=== PATIENT | male | born 1970 | race Two or more races ===

== ENCOUNTER → 2016-11-30 | Outpatient (CLI) | payer MEDICARE, OTHER ==
[~2016-11-30] MED LIST: AMOXICILLIN875 MG PO; ATARAX PO; AUGMENTIN875 MG PO; BACITRACIN15 GM OINT EXT; BACTRIM DS TABL1 TA1 PO; CIPRO PO; DELTASONE20 MG PO; DERMACORT1 GM EXT; DOXYCYCLINE PO; HYDROCODON-ACE1 EAC5 PO; HYDROCODONE-APA1 T30 PO; HYDROCODONE-APA1 T44; HYDROCORTISONE28 GM TOP; HYDROCORTISONE30 G2 EXT; HYDROCORTISONE30 G2 TOP; IBUPROFEN PO; IBUPROFEN800 MG PO; INHALER; MOTRIN600 M1 PO; NO MEDICATIONS; OMEPRAZOLE20 M2 PO; OXYCODON-ACETA1 EAC1 PO; PERCOCET 10/31 UDTA1; PREDNISONE PO; PYRIDIUM PO; SERTRALINE HCL100 M1 PO; TYLENOL #3 PO; ULTRAM PO; VISTARIL PO; ZYRTEC-D TABLE1 EACH PO; [UNRECOGNIZED DRUG - REMARK]
--- NOTE | ~2016-11-30 | CR63 ---
[facility] A Service of [facility] RADIOLOGY TEXT RESULTS PATIENT: ADIA CARDENAS LOCATION: [facility] : 74 UNIT #: [id number] AGE: [address]: JOSEPH MACEDO SEX: M ORDER DR: [id number] [facility] [address] [facility] [place], [place] [address] [id number] O MR#: [id number] Acc #: [id number] NAME: ADIA CARDENAS : 1970 SEX: M STUDY DATE/TIME: 11/30/2016 21:29 UNIT: [facility] ROOM: STUDY DESCRIPTION: CR Chest 2 View Attending Physician: Joseph Macedo Aprn Referring Physician: Joseph Macedo Aprn Ordering Physician: Joseph Macedo Aprn [facility] REPORT This report is preliminary unless electronic signature is present EXAM Two-view chest INDICATION Cough for 2 weeks. Increasing in severity. Fever. FINDINGS PA and lateral view of the chest is compared to 12/02/2015. Heart and mediastinal contours normal. Lungs are clear. No pleural effusion. IMPRESSION Negative chest radiograph. Dictated by... Carlos Gil M.D. THIS IS AN ELECTRONICALLY VERIFIED REPORT Carlos Gil M.D. at 12/02/2016 10:21 AM Uriel TD: 12/01/2016 16:45 JOB #: [id number] MEDICAL IMAGING REPORT Page 1 of 1 COPY
== END | disposition home or self-care (01) ==
LOC: CRAD 21:18
DX: J06.9 Acute upper respiratory infection, unspecified (principal); R50.9 Fever, unspecified
CPT/HCPCS: 71020

== ENCOUNTER 2016-12-18 19:26 | Emergency (ER) | payer MEDICARE, OTHER ==
--- NOTE | ~2016-12-18 | CT2 ---
[facility] A Service of [facility] RADIOLOGY TEXT RESULTS PATIENT: ADIA CARDENAS LOCATION: [facility] : 74 UNIT #: [id number] AGE: [address]: Terrell Cardenas MD SEX: M ORDER DR: [id number] [place] [address] [id number] E MR#: [id number] Acc #: [id number] NAME: ADIA CARDENAS : 1970 SEX: M STUDY DATE/TIME: 12/18/2016 21:41 UNIT: [facility] ROOM: STUDY DESCRIPTION: CT Abd and Pelv W Cont Attending Physician: Terrell Cardenas M.D. Ordering Physician: Terrell Cardenas M.D. Primary Care Physician: Tim Macedo Aprn MEDICAL IMAGING REPORT This report is preliminary unless electronic signature is present. EXAM CT abdomen and pelvis with contrast. INDICATION 46-year-old male with elevated liver enzymes today. TECHNIQUE CT of the abdomen and pelvis was performed following the administration of oral and IV contrast. Coronal and sagittal reformatted images were obtained. No comparisons. This CT exam was performed with one or more of the following radiation dose reduction techniques: automatic exposure control, adjustment of mA and/or kV according to patient size, and iterative reconstruction. FINDINGS Lung bases are clear. The liver is unremarkable. The gallbladder is contracted. The spleen is unremarkable. The kidneys are unremarkable. The adrenal glands are unremarkable. Pancreas unremarkable. There are some nonspecific prominent periportal and peripancreatic lymph nodes. PELVIS: Colon is unremarkable. Normal appendix. No free fluid in the pelvis. The colon is unremarkable. The appendix is normal. The bone windows are unremarkable. IMPRESSION No acute intraabdominal or pelvic abnormality. Dictated by... [facility] A Service [facility] RADIOLOGY TEXT RESULTS PATIENT: ADIA CARDENAS LOCATION: [facility] : 74 UNIT #: [id number] AGE: [address]: Terrell Cardenas MD SEX: M ORDER DR: Riky Burrell M.D. THIS IS AN ELECTRONICALLY VERIFIED REPORT Riky Burrell M.D. at 12/19/2016 10:06 AM LAUREEN/vasiliy TD: 12/19/2016 00:57 JOB #: [id number] MEDICAL IMAGING REPORT Page 1 of 1
[2016-12-18 19:36] LABS: URINE SOURCE CLEAN CATCH
[2016-12-18 19:38] LABS: URINE APPEARANCE CLEAR; URINE BLOOD NEG (NEG); URINE COLOR DK YELLOW; URINE GLUCOSE NEG (NORM); URINE KETONE TRACE (NEG); URINE LEUKOCYTE ESTERASE NEG (NEG); URINE NITRATE NEG (NEG); URINE PROTEIN 1+ (NEG); URINE SPECIFIC GRAVITY >=1.030 (1.003-1.035)
[2016-12-18 19:41] LABS: MICRO INDICATED? NO; URINE BILIRUBIN POS (NEG)
[2016-12-18 19:47] LABS: BASOPHIL# 0.1 X10e3 (0-0.3); EOSINOPHIL# 0.1 X10e3 (0-0.7); HEMATOCRIT 39.9 % (38.0-50.0); HEMOGLOBIN 13.4 gm/dL (13.0-16.0); LYMPHOCYTE% 36.2 % (17.0-45.0); MEAN CELL VOLUME 84.3 FL (83-96); MEAN CORPUSCULAR HEMOGLOBIN 28.3 PG (28-34); MEAN CORPUSCULAR HGB CONC 33.5 g/dL (30-36); MEAN PLATELET VOLUME 9.8 FL (6.5-11.5); MONOCYTE# 0.5 X10e3 (0-1.0); MONOCYTE% 9.4 % (3.0-12.0); NEUTROPHIL# 2.8 X10e3 (1.5-7.1); NEUTROPHIL% 52.4 % (40-75); PLATELET COUNT 235 X10e3 (140-420); RED BLOOD COUNT 4.73 X10e (3.90-5.60); RED CELL DISTRIBUTION WIDTH 14.3 % (11.0-15.5); WHITE BLOOD COUNT 5.4 X10e3 (4.0-10.5)
[2016-12-18 19:56] LABS: INR 1.2; PROTHROMBIN TIME (PATIENT) 13.6 SECONDS (9.5-12.4)
[2016-12-18 19:58] LABS: DIFF IND NO
[2016-12-18 20:03] LABS: PARTIAL THROMBOPLASTIN TIME 29.6 SECONDS (25.6-38.1)
[2016-12-18 20:24] LABS: ALBUMIN SERUM 3.7 g/dL (3.5-5.0); BILIRUBIN,INDIRECT 3.3 mg/dL (0.0-0.9); BILIRUBIN,TOTAL 8.3 mg/dL (0.2-2.0); BUN/CREATININE RATIO 11.25; CALCIUM SERUM 8.9 mg/dL (8.4-10.2); CREATININE SERUM 0.8 mg/dL (0.6-1.4); GLOM FILT RATE Estimated 108.7 mL/min (>60); POTASSIUM 3.9 mmol/L (3.5-5.1); PROTEIN TOTAL SERUM 7.1 g/dL (6.0-8.3)
[2016-12-18 21:04] LABS: AMPHETAMINE NEG (NEG); BARBITURATES NEG (NEG); BENZODIAZEPINES NEG (NEG); COCAINE NEG (NEG); MARIJUANA NEG (NEG); OPIATES NEG (NEG); TRICYCLIC ANTIDEPRESSANTS NEG (NEG); U METHADONE NEG (NEG)
== END 2016-12-18 23:02 | disposition home or self-care (01) ==
LOC: SED 19:26
PROVIDERS: Emergency Medicine
DX: K75.9 Inflammatory liver disease, unspecified (principal); E11.9 Type 2 diabetes mellitus without complications; Z87.891 Personal history of nicotine dependence
CPT/HCPCS: 36415; 74177; 80048; 80076; 80307; 81003; 82150; 83690; 85025; 85610; 85730; 99284; G0480; Q9967

== ENCOUNTER → 2016-12-18 | Outpatient (CLI) | payer MEDICARE, OTHER ==
--- NOTE | ~2016-12-18 | US5 ---
[facility] A Service of [facility] RADIOLOGY TEXT RESULTS PATIENT: ADIA CARDENAS LOCATION: [facility] : 74 UNIT #: [id number] AGE: [address]: JOSEPH MACEDO SEX: M ORDER DR: [id number] [address] [address] [id number] O MR#: [id number] Acc #: [id number] NAME: ADIA CARDENAS : 1970 SEX: M STUDY DATE/TIME: 12/18/2016 8:36 UNIT: [facility] ROOM: STUDY DESCRIPTION: US Abdominal Complete Attending Physician: Joseph Macedo Aprn Referring Physician: Joseph Macedo Aprn Ordering Physician: Joseph Macedo Aprn Primary Care Physician: Joseph Macedo Aprn MEDICAL IMAGING REPORT This report is preliminary unless electronic signature is present. EXAM Abdominal ultrasound INDICATIONS Abnormal elevated liver function tests. The patient's abnormal labs were from 10 days ago. TECHNIQUE Moran-scale, color Doppler and spectral Doppler waveform analysis was performed through the abdomen. FINDINGS The patient's liver is enlarged measuring up to 17.5 cm in craniocaudal dimension. Pancreas appears heterogeneous although I do not see any pancreatic ductal dilatation or focal mass. The liver may be mildly echogenic, which could reflect some underlying hepatic steatosis; no focal hepatic lesions are seen. There is no intra- or extrahepatic biliary dilatation. Gallbladder is normal in appearance, with no sludge or stones identified; there is no gallbladder wall thickening or pericholecystic fluid. Both kidneys are normal in appearance, with no solid or cystic renal masses seen and no hydronephrosis identified. Abdominal aorta measures within normal size limits. The spleen is within normal limits. IMPRESSION Hepatomegaly and perhaps some hepatic steatosis without focal hepatic lesion. Patient's pancreas appears heterogeneous although I do not see any focal masses. If there is any concern for pancreatic pathology, this would be better assessed with pancreas protocol CT or MRI. Dictated by... [facility] A Service of [facility] RADIOLOGY TEXT RESULTS PATIENT: ADIA CARDENAS LOCATION: [facility] : 74 UNIT #: [id number] AGE: [address]: JOSEPH MACEDO SEX: M ORDER DR: Marleny Menard M.D. THIS IS AN ELECTRONICALLY VERIFIED REPORT Marleny Menard M.D. at 12/19/2016 3:03 PM AFF/psc TD: 12/18/2016 20:00 JOB #: [id number] MEDICAL IMAGING REPORT Page 1 of 1
== END | disposition home or self-care (01) ==
LOC: SGUS 08:22
DX: R74.0 Nonspecific elevation of levels of transaminase and lactic acid dehydrogenase [LDH] (principal); R16.0 Hepatomegaly, not elsewhere classified
CPT/HCPCS: 76700

== ENCOUNTER → 2017-01-01 | Outpatient (CLI) | payer MEDICARE, OTHER ==
[2017-01-01 12:41] LABS: HEMATOCRIT 43.6 % (38.0-50.0); HEMOGLOBIN 14.3 gm/dL (13.0-16.0); MEAN CELL VOLUME 84.8 FL (83-96); MEAN CORPUSCULAR HEMOGLOBIN 27.8 PG (28-34); MEAN CORPUSCULAR HGB CONC 32.7 g/dL (30-36); MEAN PLATELET VOLUME 9.6 FL (6.5-11.5); RED BLOOD COUNT 5.14 X10e (3.90-5.60); RED CELL DISTRIBUTION WIDTH 14.6 % (11.0-15.5); WHITE BLOOD COUNT 6.3 X10e3 (4.0-10.5)
[2017-01-01 13:21] LABS: ALBUMIN SERUM 4.1 g/dL (3.5-5.0); BILIRUBIN,TOTAL 2.8 mg/dL (0.2-2.0); BUN/CREATININE RATIO 22.85; CALCIUM SERUM 9.6 mg/dL (8.4-10.2); CREATININE SERUM 0.7 mg/dL (0.6-1.4); GLOM FILT RATE Estimated 114.8 mL/min (>60); POTASSIUM 4.4 mmol/L (3.5-5.1); PROTEIN TOTAL SERUM 7.4 g/dL (6.0-8.3)
[2017-01-07 14:10] LABS: HEPATITIS B SURFACE ANTIBODY <5 mIU/mL (>=10); HEPATITIS Be ANTIGEN Nonreactive (())
== END | disposition home or self-care (01) ==
LOC: CLAB 11:59
PROVIDERS: Nurse Practitioner Family
DX: B19.10 Unspecified viral hepatitis B without hepatic coma (principal)
CPT/HCPCS: 36415; 80053; 85027; 86705; 86706; 86707; 87350; 87517

== ENCOUNTER → 2017-01-18 | Outpatient (CLI) | payer MEDICARE, OTHER ==
[2017-01-18 23:56] LABS: BASOPHIL% 0.5 % (0-2.5); EOSINOPHIL# 0.1 X10e3 (0-0.7); EOSINOPHIL% 1.7 % (0.0-7.0); HEMATOCRIT 38.4 % (38.0-50.0); LYMPHOCYTE# 4.1 X10e3 (1.0-3.5); LYMPHOCYTE% 50.4 % (17.0-45.0); MEAN CELL VOLUME 82.6 FL (83-96); MEAN CORPUSCULAR HEMOGLOBIN 27.9 PG (28-34); MEAN CORPUSCULAR HGB CONC 33.7 g/dL (30-36); MONOCYTE# 0.6 X10e3 (0-1.0); MONOCYTE% 7.9 % (3.0-12.0); NEUTROPHIL# 3.2 X10e3 (1.5-7.1); NEUTROPHIL% 39.5 % (40-75); PLATELET COUNT 243 X10e3 (140-420); RED BLOOD COUNT 4.65 X10e (3.90-5.60); RED CELL DISTRIBUTION WIDTH 15.2 % (11.0-15.5); WHITE BLOOD COUNT 8.1 X10e3 (4.0-10.5)
[2017-01-18 23:57] LABS: DIFF IND YES
[2017-01-19 00:19] LABS: ANISOCYTOSIS SL; PLATELET ESTIMATE NORMAL (NORMAL)
[2017-01-19 00:58] LABS: ALBUMIN SERUM 4.2 g/dL (3.5-5.0); BILIRUBIN,TOTAL 1.2 mg/dL (0.2-2.0); BUN/CREATININE RATIO 14.44; CALCIUM SERUM 9.4 mg/dL (8.4-10.2); CREATININE SERUM 0.9 mg/dL (0.6-1.4); GLOM FILT RATE Estimated 103.5 mL/min (>60); POTASSIUM 4.3 mmol/L (3.5-5.1); PROTEIN TOTAL SERUM 7.1 g/dL (6.0-8.3)
== END | disposition home or self-care (01) ==
LOC: CLAB 23:21
PROVIDERS: Internal Medicine
DX: B19.10 Unspecified viral hepatitis B without hepatic coma (principal)
CPT/HCPCS: 36415; 80053; 85025